=== PATIENT | female | born 2000 | race Caucasian/White ===

== ENCOUNTER 2024-03-14 23:29 | Emergency (ER) | payer MEDICAID, OTHER ==
[~2024-03-14] VITALS: Ht 172.7 cm; Wt 153.3 kg
[2024-03-14 23:58] VITALS: BP 141/92; PULSE 85; RESP 16; TEMP 97.6; O2SAT 99
[2024-03-15] VITALS: RESP 16; TEMP 97.6; O2SAT 99
[2024-03-15] MEDS ORDERED: HYDR-1093 PO ×2 (00:11→09:31)
[2024-03-15] MEDS ORDERED: BACTO TP ×2 (00:11→09:31)
[2024-03-15] MEDS ORDERED: ELIMC TP ×2 (00:11→09:31)
[2024-03-15] MEDS ORDERED: DOXY-22 PO ×2 (00:11→09:31)
== END 2024-03-15 00:24 | disposition home or self-care (01) ==
LOC: MED 23:29
DX: S30.860A Insect bite (nonvenomous) of lower back and pelvis, initial encounter (principal); S80.869A Insect bite (nonvenomous), unspecified lower leg, initial encounter; L29.9 Pruritus, unspecified; Z79.899 Other long term (current) drug therapy; W57.XXXA Bitten or stung by nonvenomous insect and other nonvenomous arthropods, initial encounter; Y93.89 Activity, other specified; Y92.89 Other specified places as the place of occurrence of the external cause; Y99.8 Other external cause status
CPT/HCPCS: 99283